=== PATIENT | male | born 1995 | race Caucasian/White ===

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

== ENCOUNTER 2017-09-25 12:22 | Observation (INO) | payer OTHER ==
[2017-09-25] VITALS (7 sets, daily range): BP systolic 109–152; BP diastolic 52–76; PULSE 43–95; TEMP 36.8–37.1; O2SAT 93–99; Ht 182.9 cm; Wt 70.0 kg
[~2017-09-25] VITALS: Ht 182.9 cm; Wt 70.0 kg
[2017-09-25] MEDS ORDERED: MoRPHine SULFATE 10 MG/ML CARP/VIAL IV STA (12:52)
[2017-09-25] MEDS ORDERED: ONDANSETRON INJ 2 MG/ML 2 ML VIAL IV STA (12:52)
[2017-09-25] MEDS ORDERED: MoRPHine SULFATE 4 MG/ML 1 ML CARP\\VIAL ONE (13:19)
--- NOTE | 2017-09-25 13:21 | DIAGNOSTIC IMAGING REPORT ---
L KNEE 3 VIEWS CLINICAL HISTORY: D01B - left knee puncture trauma by nailgun trauma. Pain. COMPARISON: None. DISCUSSION: Metallic nail entering the suprapatellar bursa, passing posterior to the patella, with the tip in the infrapatellar fat pad. No well-defined bony involvement. No evidence for fracture or dislocation. There is no evidence for soft tissue swelling. IMPRESSION: Large metallic nail located within the patellofemoral joint space. No evidence for acute bony involvement. The above report was generated using voice recognition software. It may contain grammatical, syntax or spelling errors. Electronically signed by: Dennis Solano M.D. 09/25/2017 1:20 PM Dictated Date/Time: 09/25/2017 1:19 PM
--- NOTE | 2017-09-25 13:47 | EMERGENCY ROOM VISIT NOTE ---
ED Visit Note First contact with patient: 12:36 CHIEF COMPLAINT: Nail through the left knee HISTORY OF PRESENT ILLNESS: This 22-year-old male patient presents to the emergency department approximately 30 minutes after sustaining an injury to the left knee. The patient states he was climbing up trusses, holding a nail gun, when he accidentally shot a nail gun through his left knee. The nail entered from the superior lateral aspect of the knee. The patient is able to see the head of the nail externally. The patient has been unable to ambulate or move the leg, and has taken no medication for his symptoms. His parents carried him to the vehicle to bring him to the emergency department. The patient denies any other injuries besides their knee. The patient denies swelling or bruising. There is pain the knee joint. They rate the pain as sharp and 10/ 10. No numbness or tingling. No previous injuries to this knee. No ankle, foot or hip pain. The patient's tetanus vaccination is not up-to-date. REVIEW OF SYSTEMS: A 6 system review of systems was completed with positives and pertinent negatives listed in the HPI. ALLERGIES: None MEDICATIONS: None PMH: None SOCIAL HISTORY: The patient lives locally with family. He denies drug, alcohol , tobacco use. PHYSICAL EXAM: Vital Signs: Reviewed Nurse's notes, vital signs stable. GENERAL : Is a 22-year-old white male, no acute distress, but appears in pain, well- developed, well-nourished. MENTAL STATUS: Alert, oriented to person place and time, and cooperative. MUSCULOSKELETAL: There is a nail head sticking out from the superior lateral aspect of the left knee joint. The left knee is mildly swollen. There is no ecchymosis. There is no joint effusion present. The patient is tender throughout the entire knee and joint. There is joint line tenderness. Range of motion is limited. Pt. would not tolerate strength testing of the hamstrings or quads. The foot and toes are warm and well-perfused. Dorsalis pedis pulse 2+. Sensation to pain and light touch is intact. Capillary refill less than 2 seconds. RADIOLOGY: L KNEE 3 VIEWS CLINICAL HISTORY: D01B - left knee puncture trauma by nailgun trauma. Pain. COMPARISON: None. DISCUSSION: Metallic nail entering the suprapatellar bursa, passing posterior to the patella, with the tip in the infrapatellar fat pad. No well-defined bony involvement. No evidence for fracture or dislocation. There is no evidence for soft tissue swelling. IMPRESSION: Large metallic nail located within the patellofemoral joint space. No evidence for acute bony involvement. The above report was generated using voice recognition software. It may contain grammatical, syntax or spelling errors. Electronically signed by: Dennis Solano M.D. 09/25/2017 1:20 PM Dictated Date/Time: 09/25/2017 1:19 PM EMERGENCY DEPARTMENT COURSE: I examined the patient. X-rays of the left knee were reviewed by myself and read by radiology and reveal a nail through the patellofemoral joint space with no obvious bony involvement. I did speak with Dr. Rodriges regarding the patient condition and x-ray and he agrees with orthopedic consult. IV Access obtained. The patient was given 8mg Morphine and 4mg Zofran. I consulted with Dr. Landry who requests starting Ancef and he will send someone to evaluate the patient. The patient was then evaluated by Per Washington PA-C, who did attempt removal of the nail, but unsuccessfully. The patient was given a repeat dose of 4mg Morphine, 1g Ancef, and a Tdap vaccination. He was prepped and taken to the OR by orthopedics. I attest that I have personally reviewed the patient's current medication list. Patient was found to have normal blood pressure on screening and does not require follow-up. DIFFERENTIAL DIAGNOSIS: Foreign body of the knee, infection, fracture, contusion , soft tissue injury, and others DIAGNOSIS: Foreign body through left knee joint Current/Historical Medications No Active Prescriptions or Reported Meds Allergies Coded Allergies: No Known Allergies (Verified , 06/09/05) Uncoded Allergies: ANTIBIOT (Allergy, Unknown, 10/12/09) Vital Signs Date Time Temp Pulse Resp B/P (MAP) Pulse Ox O2 Delivery O2 Flow Rate FiO2 09/25/17 14:54 74 16 165/81 99 09/25/17 13:50 67 18 157/68 96 Room Air 09/25/17 12:26 36.8 81 18 146/77 100 Room Air Medications Administered Medications (Trade) Dose Ordered Sig/Barrett Route Start Time Stop Time Status Last Admin Dose Admin Ondansetron HCl (Zofran Inj) 4 mg NOW STAT IV 09/25/17 12:52 09/25/17 12:53 DC 09/25/17 13:21 4 MG Morphine Sulfate (MoRPHine SULFATE INJ) 8 mg STK-MED ONCE .ROUTE 09/25/17 13:19 09/25/17 13:20 DC 09/25/17 13:24 8 MG Cefazolin Sodium (Cefazolin 1000mg Iv Push) 1,000 mg NOW STAT IV 09/25/17 13:49 09/25/17 13:50 DC 09/25/17 13:59 1,000 MG Diphtheria/ Pertussis/Tetanus Vacc (Adacel Inj) 0.5 ml ONCE ONCE IM. 09/25/17 14:00 09/25/17 14:01 DC 09/25/17 13:59 0.5 ML Morphine Sulfate (MoRPHine SULFATE INJ) 4 mg Q15M PRN IV 09/25/17 14:15 10/09/17 14:14 09/25/17 14:13 4 MG Departure Information Impression Primary Impression: Puncture wound with foreign body, left knee, initial encounter Dispostion Being Evaluated By Surgeon Condition GOOD Prescriptions No Active Prescriptions or Reported Meds Referrals No Doctor, Assigned (PCP) Patient Instructions [facility]
[2017-09-25] MEDS ORDERED: CEFAZOLIN SOD 1000MG/5 ML IV PUSH IV STA (13:49)
[2017-09-25] MEDS ORDERED: DIPHTHERIA/TETANUS/PERTUSSIS 0.5 ML SYR/VIAL IM. ONE (14:00)
[2017-09-25] MEDS ORDERED: MoRPHine SULFATE 4 MG/ML 1 ML CARP\\VIAL IV PRN (14:15)
--- NOTE | 2017-09-25 14:34 | History and Physical ---
History & Physical Date Sep 25, 2017. Chief Complaint Foreign body left knee History of Present Illness The patient is a 22 year old white male with complaints of a nail protruding from his knee. 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 He had his finger on the trigger of the air nailer. It touched his leg and went off. He has a large framing nail protruding from his left knee. He has been unable to flex the knee secondary to pain. No other complaints. He last ate clam chowder at 10 AM this morning. He states he did have 2 large glasses of water around 11:30. No prior history of any issues. Female relatives accompany him today. He denies any numbness or tingling. Past Medical/Surgical History Previous surgeries: myringotomy as a child, wisdom tooth extraction Medical history: Unremarkable Additional History Other: Family history: Significant for diabetes. He also has an infant sister that from some sort of cardiac anomaly. Allergies Coded Allergies: No Known Allergies (Verified , 06/09/05) Uncoded Allergies: ANTIBIOT (Allergy, Unknown, 10/12/09) Home Medications No Active Prescriptions or Reported Meds Physical Examination Addiitonal Comments: Gen.: Well-developed, well-nourished, young white male, in obvious discomfort. No acute distress. Laying on a bed. Alert and oriented. Skin:Warm and dry with good turgor. No rashes or lesions. No ecchymosis or erythema. The patient is not diaphoretic. No abrasions. Nail head is protruding from his left superior patellar pouch. HEENT: Normocephalic atraumatic. Eyes PERRLA, EOMI. No conjunctiva or scleral injection. Nares patent bilaterally without turbinate enlargement. No significant drainage. No epistaxis. Oropharynx without erythema or exudate. Uvula midline, oral mucosa moist. No lesions present. Heart: Heart RRR. 2/6 systolic ejection murmur noted No GR.. Peripheral pulses are 2+. Lungs: Lungs are clear to auscultation. No crackles rhonchi or wheezing. Good air movement. The patient is able to take a deep breath. Abdomen: Abdomen was inspected, auscultated, and palpated. Bowel sounds present x 4. Soft, nontender to palpation. No hepato-splenomegaly. No masses noted. Musculoskeletal: Patient has intact motor function to his left ankle. He has no motion at the knee secondary to pain. Intact quadriceps function. Nail protruding from the knee as stated above. Neurologic: Gross sensation is intact across the left leg by soft touch. Peripheral pulses are 2+. Data: Bradycardia graphic imaging obtained today shows a retained large framing nail within his left knee. It does not appear to be embedded in the bone. Diagnosis Left knee retained foreign body(carpentry nail) Plan of Treatment Patient has been educated regarding today's findings. Necessity for irrigation and debridement was discussed. This will be performed by Dr. Landry this afternoon. I did speak with anesthesia regarding his recent food ingestion. IV has been established. Patient has are received multiple doses of morphine and Zofran. Tetanus has been updated. He'll receive a dose of Ancef prior to incision.
[2017-09-25] MEDS ORDERED: MIDAZOLAM HCL 1 MG/ML 2ML VIAL ONE (14:59)
[2017-09-25] MEDS ORDERED: FENTANYL CITRATE INJ 50 MCG/1 ML 2 ML VIAL ONE (14:59)
[2017-09-25] MEDS ORDERED: ATROPINE SULFATE 0.1 MG/ML 5ML SYR IV PRN (15:00)
[2017-09-25] MEDS ORDERED: KETOROLAC TROMETHAMINE 30 MG/ML VIAL IV. PRN (15:00)
[2017-09-25] MEDS ORDERED: ONDANSETRON INJ 2 MG/ML 2 ML VIAL IV PRN ×2 (15:00→17:30)
[2017-09-25] MEDS ORDERED: BACITRACIN 50000 UNIT VIAL ONE (15:26)
[2017-09-25] MEDS ORDERED: LIDOCAINE/EPINEPHRINE 1% 20 ML VIAL ONE (15:27)
[2017-09-25] MEDS ORDERED: ONDANSETRON INJ 2 MG/ML 2 ML VIAL ONE (15:58)
[2017-09-25] MEDS ORDERED: ROCURONIUM BROMIDE 10 MG/ML 5 ML VIAL IV ONE (15:58)
[2017-09-25] MEDS ORDERED: PROPOFOL IV EMULSION 10 MG/ML 20 ML VIAL IV ONE (15:58)
[2017-09-25] MEDS ORDERED: CEFAZOLIN SOD 1 GM VIAL ONE (15:58)
[2017-09-25] MEDS ORDERED: LIDOCAINE HCL 2% 2 ML VIAL (20MG/ML) ONE (15:58)
[2017-09-25] MEDS ORDERED: DEXAMETHASONE SOD INJ 4 MG/ML VIAL ONE (15:58)
--- NOTE | 2017-09-25 16:24 | DIAGNOSTIC IMAGING REPORT ---
L KNEE 1 OR 2 VIEWS ROUTINE HISTORY: 22 years-old Male PRE OP - LEFT KNEE preoperative exam of the left knee. COMPARISON: Left knee radiographs 09/25/2017 TECHNIQUE: 2 views of the left knee FINDINGS: Interval removal of the radiopaque foreign body within the patellofemoral joint. There is persistent moderate soft tissue swelling about the knee with moderate joint effusion. Corticated bone fragment superior to the tibial tuberosity is again seen measuring up to 1.4 cm in length suggesting remote Sandy-Schlatter disease or remote avulsion fracture. No acute fracture or subluxation identified. No definite intra-articular loose body. IMPRESSION: 1. No acute fracture or subluxation. 2. Status post removal of the foreign body within the patellofemoral joint. There is persistent soft tissue swelling about the knee with moderate joint effusion. The above report was generated using voice recognition software. It may contain grammatical, syntax or spelling errors. Electronically signed by: Lucian Gandhi M.D. 09/25/2017 4:22 PM Dictated Date/Time: 09/25/2017 4:20 PM
--- NOTE | 2017-09-25 17:20 | [facility] Post Operative Brief Note ---
Immediate Operative Summary Operative Date Sep 25, 2017. Pre-Operative Diagnosis foreign body left knee Post-Operative Diagnosis same plus chondral fracture Procedure(s) Performed arthroscpy, irrigation, debridement removal of foreign body and chondral fraacture Surgeon adrienne Industrial Pipefitter Journeyman Surgeon(s) betzaida Estimated Blood Loss 5cc Findings Consistent with Post-Op Diagnosis Specimens foreign body Drains hemovac x1 Anesthesia Type General Complication(s) none Disposition Accompanied Pt To Recover: no Disposition: Recovery Room / PACU
[2017-09-25] MEDS ORDERED: ALUMINUM/MAGNESIUM/SIMETH (MAALOX MAX) 30 ML UDC PO PRN (17:30)
[2017-09-25] MEDS ORDERED: ACETAMINOPHEN 325 MG TAB PO PRN (17:30)
[2017-09-25] MEDS ORDERED: DiphenhydrAMINE HCL 50 MG/ML VIAL IV PRN (17:30)
[2017-09-25] MEDS ORDERED: BISACODYL 10 MG SUPP PR PRN (17:30)
[2017-09-25] MEDS ORDERED: MAGNESIUM HYDROXIDE SUSP 30 ML UDC PO PRN (17:30)
[2017-09-25] MEDS ORDERED: METOCLOPRAMIDE HCL INJ 5 MG/ML 2 ML VIAL IV PRN (17:30)
--- NOTE | 2017-09-25 17:50 | [facility] Operative Report ---
Operative Report Operative Date Sep 25, 2017. Pre-Operative Diagnosis foreign body left knee Post-Operative Diagnosis same plus chondral fracture Procedure(s) Performed arthroscpy, irrigation, debridement removal of foreign body and chondral fraacture Surgeon adrienne Passenger Service Manager Surgeon(s) betzaida Estimated Blood Loss 5cc Findings foreign body left knee; chondral defect Specimens foreign body Drains hemovac x1 Anesthesia General Complication(s) None Disposition Recovery Room / PACU (stable) Indications Patient is a 22-year-old male who shot a nail into his left knee with a nail gun today while working. X-rays were taken and he was found to have an intra- articular foreign body. Surgical intervention was recommended. Procedure, occasions surgery were discussed and he agreed to proceed. Informed consent was obtained. He was taken to the operating room urgently. Description of Procedure Patient was taken to the operating room and placed under general anesthesia. He was given 1 g of IV Ancef for surgical prophylaxis. Timeout was performed. He was prepped and draped in routine sterile fashion. As present during the entire case, please see Dr. Landry's operative report for further detail. Patient was awakened and transferred to recovery room in stable condition. I attest to the content of the Intraoperative Record and any orders documented therein. Any exceptions are noted below.
[2017-09-25] MEDS: HYDROmorphone INJ 2 MG/ML SYR/VIAL IV PRN ×8 (17:55→18:30)
--- NOTE | 2017-09-25 18:16 | Anesthesiology Progress Note ---
Anesthesia Post Op Note Date & Time Sep 25, 2017 at 18:16 Vital Signs Vital Signs Past 12 Hours Date Time Temp Pulse Resp B/P (MAP) Pulse Ox O2 Delivery O2 Flow Rate FiO2 09/25/17 14:54 74 16 165/81 99 09/25/17 13:50 67 18 157/68 96 Room Air 09/25/17 12:26 36.8 81 18 146/77 100 Room Air Notes Mental Status: alert / awake / arousable, participated in evaluation Pt Amnestic to Procedure: Yes Nausea / Vomiting: adequately controlled Pain: adequately controlled Airway Patency, RR, SpO2: stable & adequate BP & HR: stable & adequate Hydration State: stable & adequate Anesthetic Complications: no major complications apparent
[2017-09-25] MEDS: MoRPHine SULFATE 2 MG/ML CARP IV PRN (19:37)
[2017-09-25] MEDS ORDERED: IV FLUIDS COMPLETED PRN (19:45)
--- NOTE | 2017-09-25 20:25 | ORTHOPEDIC CONSULTATION ---
DATE OF CONSULTATION: 09/25/2017 The patient is seen in conjunction with Per Washington. For further details, refer to his dictation. He and I saw and evaluated this patient, I am in agreement with the plan. SUBJECTIVE: Francisco J is a 22-year-old male who sustained an accidental nail gun injury at work earlier today. He was coming down the ladder when the nail gun contacted his left knee went off and injected a nail into the knee. He was brought to the Emergency Room where he was evaluated. He received tetanus and antibiotics. There is no prior history of knee injury. He denies numbness and tingling. DATA: AP and lateral radiographs show no evidence of fracture. Additionally, a nail was noted in the patellofemoral joint. PHYSICAL EXAMINATION: Shows that the knee cannot be moved due to pain and the impeding foreign body. There is minimal swelling about the knee, the nail is protruding superior and lateral. The size of the knee joint is nontender and the patella is minimally tender. He cannot do a leg lift. He has 1+ dorsalis pedis and posterior tib pulses. There is normal sensation in the foot and leg with 5/5 ankle and toe plantar flexion and dorsiflexion strength. IMPRESSION: Left knee foreign body. PLAN: I have recommended operative intervention to remove the nail, explore the knee arthroscopically, irrigate and debride and other procedures as indicated. An informed consent is obtained. He is educated about the planned treatment. He has received antibiotics and he will be admitted to the hospital postoperatively. We talked about the risks of infection, bleeding, pain, scarring, further damage to the knee; small risk of blood clot, embolism, heart attack, stroke, . He has no issues with bleeding, blood clots or infections. He does not have metal sensitivity. He is otherwise a fairly healthy person. He will likely be admitted postoperatively for pain control, antibiotics and other treatment as necessary.
--- NOTE | 2017-09-25 20:40 | OPERATIVE REPORT ---
DATE OF OPERATION: 09/25/2017 ADDENDUM After removal of the foreign body, x-rays AP and lateral were obtained of the knee, which showed no residual foreign material, no evidence of fracture. I attest to the content of the Intraoperative Record and any orders documented therein. Any exception s are noted below.
[2017-09-25] MEDS: D5W AND 1/2NSS + 20MEQ KCL 1,000 ML IV SCH (20:46)
[2017-09-25] MEDS: ACETAMINOPHEN IV 1,000 MG in EMPTY BAG 0 ML IV SCH (20:47)
[2017-09-25] MEDS: DOCUSATE SODIUM 100 MG CAP PO SCH (20:50)
[2017-09-25] MEDS: KETOROLAC TROMETHAMINE 30 MG/ML VIAL IV. SCH (20:50)
--- NOTE | 2017-09-25 20:50 | OPERATIVE REPORT ---
DATE OF OPERATION: 09/25/2017 PREOPERATIVE DIAGNOSIS: Foreign body of the left knee. POSTOPERATIVE DIAGNOSIS: Left knee foreign body with chondral fracture of the medial femoral condyle. PROCEDURE: Left knee arthroscopy, arthroscopic irrigation and debridement, removal of foreign body, removal of chondral fracture with microfracture. SURGEON: Orion Landry MD. PRESS CLEANER: Kalyn Archer PA-C. No resident or fellow available. ANESTHESIA: Laryngeal mask. INDICATIONS OF PROCEDURE: The patient is a 22-year-old male who sustained an accidental self-inflicted nail gun injury to his left knee earlier today. The nail has entered just above the superior lateral patella and is incarcerated within the knee. Radiographs do not show fracture; however, the nail was obviously within the knee joint. He is educated about his options. The nail was attempted to be removed in the Emergency Room, but could not be done. He is taken to surgery for removal of the foreign body, arthroscopic irrigation and debridement and any other procedures as would be necessary. PROCEDURE IN DETAIL: Informed consent was obtained. The patient was identified as Francisco J Leyva. He identified the operative site as the left knee. I marked it with my initials. A preop surgical time was performed. A preop dose of IV antibiotics was given. He was taken to the operating room, positioned supine on the operating room table. A laryngeal mask anesthetic was administered. A tourniquet was applied to the left thigh. DVT prophylaxis was not indicated. After performing the surgical time out, the head of which was outside the skin on the superior lateral aspect of the knee along with a patch of clothing was removed without incident using a pair of pliers. The examination then revealed a clicking when the knee was flexed involving the patellofemoral joint. He had full extension and flexion to 140 degrees and intact cruciate and collateral stability. There was perhaps a small effusion within the knee. The leg was clipped, pre-prepped with a scrub and then prepped and draped in the usual sterile fashion. He received a preoperative dose of IV antibiotics. A lateral post was used for stressing the knee. An inferolateral viewing portal was made followed by superolateral outflow portal and an inferomedial working portal. The retropatellar fat pad was debrided. Cruciate ligaments normal. The posteromedial compartment normal. I did not enter the posterolateral compartment. The lateral compartment showed normal articular surfaces, normal meniscus and popliteal hiatus. I could see into the back of the lateral compartment from anteriorly. The medial and lateral gutters were unremarkable. The medial compartment showed normal articular surfaces and normal meniscus. The patella was normal with the exception of an area proximal and slightly lateral where the nail had just penetrated the very margin of the patella. There was a minor chondral injury here and this was debrided. I debrided soft tissue in the suprapatellar pouch. I identified the tract where the nail penetrated. I inserted a hemostat. This went directly down to the aforementioned location at the superior lateral border of the patella. Fluid was then expressed from this area for irrigation. Likely because of this soft tissue injury fluid was extravasating out into the prepatellar bursa. I debrided the patella through the superior lateral portal. It was noted that the nail struck the superior trochlea, made a tract obliquely down across the superior medial trochlea and then in the medial condyle knocked off a piece of cartilage which was attached only proximally and then continued to skive distally. The overall length of this was perhaps 5 cm. The chondral tracts proximally and distally were partial thickness and were debrided to remove chondral fraying but were not full thickness and did not result in any unstable fragments. There was a small fragment which was measured to be about 5 or 6 mm wide and about 10-12 mm long. There was some metal debris bone and on the fragment. I sized this with a probe and freer. The smaller screw that we had was probably 2.4 mm which would have taken out most of the fragment. The fragment was somewhat irregular and longitudinal and I think given the size and location as well as the nature of this injury that a repair, although desirable was not technically feasible. The fragment was amputated proximally with a freer and then removed. Parking Meter Servicer images were obtained. I then curetted the base of the lesion to remove any debris and the calcified cartilage layer. Vertical dumont were essentially already present. I debrided with a shaver. The size of the lesion ended up being 12 mm x 7 mm, 12 mm anterior to posterior 7 mm medial to lateral. Microfracture picks were not available. I used a 0.045 inch K wire to drill 6 holes into the lesion for microfracture procedure. A drain was placed through the superior lateral portal and brought into the knee, medial gutter and anterior knee joint. The shaver was run through the knee to excelsior picker loose debris. The drain was tied in with 4-0 nylon and the portals were closed with 4-0 nylon. A soft sterile dressing was applied with several ABDs, Xeroform, 4 x 4's, and a full length Vinicio wrap. A hinged brace was applied with the knee locked in extension. The patient was awakened from anesthesia without difficulty and taken to the recovery room in stable condition. The removed nail which was completely removed and appeared to be approximately 8 or 10 evelio type nail which was approximately 3 inches in length with a piece of clothing attached to it was removed. Counts were correct at the end of case. Blood loss was minimal. At the conclusion of the operation, I spoke to patient's family and informed them of my findings and gave detailed postoperative instructions. We will likely leave the drain in for approximately 24-36 hours. The knee will be held immobilized in extension until that point. Subsequent to that, we will go ahead and begin early range of motion. He can weightbear as tolerated with the knee in extension locked in the brace. We talked about restrictions for the microfracture postoperatively. He will receive a postop course of intravenous antibiotics. I attest to the content of the Intraoperative Record and any orders documented therein. Any exception s are noted below.
[2017-09-25] MEDS: MoRPHine SULFATE 4 MG/ML 1 ML CARP\\VIAL IV PRN (21:33)
[2017-09-25] MEDS: OXYCODONE HCL IR 5 MG TAB (IMMEDIATE RELEASE) PO PRN (22:42)
[2017-09-26] VITALS (9 sets, daily range): BP systolic 102–137; BP diastolic 49–74; PULSE 40–69; TEMP 36.8–37.1; O2SAT 93–99
[2017-09-26] MEDS: CEFAZOLIN IV 1,000 MG in SYRINGE 0 ML IV SCH ×3 (00:27→15:45)
[2017-09-26] MEDS: KETOROLAC TROMETHAMINE 30 MG/ML VIAL IV. SCH ×3 (00:28→11:35)
[2017-09-26] MEDS: OXYCODONE HCL IR 5 MG TAB (IMMEDIATE RELEASE) PO PRN ×4 (02:57→19:37)
[2017-09-26] MEDS: ACETAMINOPHEN IV 1,000 MG in EMPTY BAG 0 ML IV SCH ×2 (04:39→11:34)
[2017-09-26] MEDS: D5W AND 1/2NSS + 20MEQ KCL 1,000 ML IV SCH (05:33)
[2017-09-26] MEDS: MoRPHine SULFATE 2 MG/ML CARP IV PRN (07:56)
[2017-09-26] MEDS: MULTIVITAMIN TAB PO SCH (07:57)
[2017-09-26] MEDS: DOCUSATE SODIUM 100 MG CAP PO SCH ×2 (07:57→20:47)
[2017-09-26] MEDS: PANTOprazole SOD 40 MG TAB PO SCH (07:57)
[2017-09-26] MEDS ORDERED: OXYC-57 PO (09:38)
--- NOTE | 2017-09-26 09:48 | Orthopedic Progress Note ---
Orthopedic Progress Note Date of Service Sep 26, 2017. Subjective Post OP Day: 1 Reports: complaints (having pain this morning), Denies: chest pain, SOB, nausea / vomiting, light headedness, calf pain Additional Notes: has had ofirmev, toradol, oxycodone, and morphine this morning Objective splint C/D/I, capillary refill less than 2 sec., dressing C/D/I, A&O x3, toes mobile, CMS intact brace and dressings intact, drain working with 75ml out so far. vitals do not suggest significant pain Date Time Temp Pulse Resp B/P (MAP) Pulse Ox O2 Delivery O2 Flow Rate FiO2 09/26/17 07:06 36.8 45 15 117/59 (78) 99 Room Air 09/26/17 05:37 42 102/49 (66) 98 Room Air 09/26/17 03:30 36.8 42 15 116/64 (81) 99 Room Air 09/26/17 02:23 40 98 Room Air 09/26/17 00:25 Room Air 09/25/17 23:19 37.0 43 15 109/52 (71) 97 Room Air 09/25/17 22:10 37.0 60 18 137/72 (93) 95 Room Air 09/25/17 21:18 37.1 60 18 152/70 (97) 95 Room Air 09/25/17 20:10 36.8 66 18 143/76 (98) 97 Room Air 09/25/17 19:40 36.8 68 18 133/73 (93) 99 Nasal Cannula 2.0 09/25/17 19:10 Nasal Cannula 2.0 09/25/17 19:10 93 Nasal Cannula 2.0 09/25/17 19:09 37.1 95 18 148/74 (98) 93 Nasal Cannula 2.0 09/25/17 18:52 56 16 09/25/17 18:52 58 16 99 09/25/17 18:51 120/56 09/25/17 18:47 53 17 09/25/17 18:47 55 17 99 09/25/17 18:46 120/53 09/25/17 18:42 55 15 09/25/17 18:42 56 15 100 09/25/17 18:41 141/59 09/25/17 18:37 37.0 61 17 121/51 (78) 99 Nasal Cannula 2 09/25/17 18:37 54 16 09/25/17 18:37 55 16 100 09/25/17 18:36 121/51 09/25/17 18:32 56 17 100 09/25/17 18:32 59 17 09/25/17 18:30 123/63 09/25/17 18:27 51 15 100 18 18:27 51 15 09/25/17 18:26 123/67 09/25/17 18:24 73 17 100 09/25/17 18:24 69 17 09/25/17 18:20 145/76 09/25/17 18:19 83 23 100 09/25/17 18:19 86 23 09/25/17 18:15 137/77 09/25/17 18:14 65 15 09/25/17 18:14 65 15 100 09/25/17 18:11 128/78 09/25/17 18:09 57 17 09/25/17 18:09 58 17 100 09/25/17 18:05 147/81 09/25/17 18:04 83 18 09/25/17 18:04 82 18 100 09/25/17 18:01 138/65 09/25/17 17:59 80 20 09/25/17 17:59 78 20 100 09/25/17 17:55 134/77 09/25/17 17:54 78 19 09/25/17 17:54 78 19 100 09/25/17 17:50 132/68 09/25/17 17:49 92 24 100 09/25/17 17:49 94 24 09/25/17 17:46 131/65 09/25/17 17:44 104 23 98 09/25/17 17:44 104 23 09/25/17 17:44 36.9 94 16 146/66 100 Oxymask 10 09/25/17 14:54 74 16 165/81 99 09/25/17 13:50 67 18 157/68 96 Room Air 09/25/17 12:26 36.8 81 18 146/77 100 Room Air Assessment & Plan Assessment: left knee post op day 1 arthroscopy, irrigation and debridement, foreign body removal Plan: PT today for crutch training continue antibiotics ice and elevate knee will leave drain in today Pt to be seen later today by Dr. Landry anticipate D/C to home tomorrow Discharge Planning Discharge Planning: home Pain Management: Percocet DVT Prophylaxis: TEDs Therapy: Physical Therapy
[2017-09-26] MEDS: MoRPHine SULFATE 4 MG/ML 1 ML CARP\\VIAL IV PRN ×2 (15:48→22:40)
[2017-09-27] MEDS: MoRPHine SULFATE 4 MG/ML 1 ML CARP\\VIAL IV PRN (04:05)
[2017-09-27 06:59] VITALS: BP 126/65; PULSE 53; TEMP 36.9; O2SAT 96
[2017-09-27] MEDS: MULTIVITAMIN TAB PO SCH (07:36)
[2017-09-27] MEDS: OXYCODONE HCL IR 5 MG TAB (IMMEDIATE RELEASE) PO PRN ×2 (07:36→11:24)
[2017-09-27] MEDS: DOCUSATE SODIUM 100 MG CAP PO SCH (07:36)
[2017-09-27] MEDS: PANTOprazole SOD 40 MG TAB PO SCH (07:37)
--- NOTE | 2017-09-27 10:51 | Discharge Instructions ---
Discharge Instructions Date of Service Sep 27, 2017. Admission Reason for Admission: Puncture Wound With Foreign Body, Left Knee Discharge Discharge Diagnosis / Problem: same Discharge Goals Goal(s): Decrease discomfort, Improve function Activity Recommendations Activity Limitations: per Instructions/Follow-up section . Instructions / Follow-Up Instructions / Follow-Up follow up wiTh DR CHOUDHURY THIS WEEK WE WILL CALL YOU TO SET UP PHYSICAL THERAPY PERCOCET 5/325 1-2 BY MOUTH EVERY 6 HOURS COLACE OR SENNEKOT FOR CONSTIPATION ADVIL OR ALEVE CALL FOR ANY PROBLEMS FEVER, SWELLING NUMBNESS PAIN KEFLEX 500 MG PO QID X3DAYS Current Hospital Diet Patient's current hospital diet: Regular Diet Discharge Diet Recommended Diet: Regular Diet Procedures Procedures Performed: arthroscpy, irrigation, debridement removal of foreign body and chondral fraacture Pending Studies Studies pending at discharge: no Work Instructions Additional Instructions: NO WORK Medical Emergencies . Who to Call and When: Medical Emergencies: If at any time you feel your situation is an emergency, please call 911 immediately. . Non-Emergent Contact Non-Emergency issues call your: Surgeon Contact Number: [phone] Call Non-Emergent contact if: you have a fever, your pain is not controlled, your pain is worsening, wound has increased drainage, wound has increased redness, wound has increased pain . "Provider Documentation" section prepared by Orion Choudhury. . VTE Core Measure Inpt VTE Proph given/why not?: Treatment not indicated
[2017-09-27] MEDS ORDERED: OXYC-57 PO (10:52)
[2017-09-27] MEDS ORDERED: CEPH500T PO (10:54)
[2017-09-27 11:07] VITALS: BP 126/65; PULSE 53; TEMP 36.9; O2SAT 96
--- NOTE | 2017-09-27 13:05 | PROGRESS NOTE ---
DATE: 09/27/2017 SUBJECTIVE: The patient is resting comfortably in bed. No problems are reported. Pain is well controlled. He has not had any fevers and his vital signs are stable. He has a 2+ dorsalis pedis and posterior tib pulses. He has 5/5 strength on ankle and toe plantar flexion and dorsiflexion with normal sensation in the leg. His drainage, the last shift, was 50 mL. The dressing is changed. There is minimal swelling within the knee or prepatellar bursa. No erythema. The drain is removed. The new dressing is applied after cleaning the leg. He does a poor report quad sit and cannot do a straight leg raise. He is unable to bend his knee significantly because of pain. IMPRESSION: Marginal fracture of the patella and chondral injury of the medial femoral condyle status post nail gun foreign body injury to the left knee. PLAN: Findings are discussed. He is discharged home. We will contact him tomorrow with appointment for physical therapy. He will see me later in the week for a wound check. If there are any problems with pain, fever, swelling, numbness and tingling, any other problems or questions, please call the office. He is supplied with phone number. He is to take a stool softener like Senokot or Colace. Cephalexin 500 mg q.i.d. x3 days. Percocet 1-2 every 6 hours as needed for pain. He is instructed on ankle pumps, quad sits, straight leg raises and knee range of motion. He is not to be bearing weight his knee bent. I discussed with him the nature of the injury and my recommendations for healing of the microfracture medial femoral condyle which would involve a prolonged period of time without weightbearing flexion of the knee. He is able to bear weight in full extension using crutches and brace. Leave the dressing as is. ARTIE
--- NOTE | 2017-09-28 16:38 | Discharge Summary ---
Discharge Summary Date of Service Sep 28, 2017. Discharge Summary Admission Date: Sep 25, 2017 at 17:42 Discharge Date: Sep 27, 2017 Discharge Disposition: Home Principal Diagnosis: Foreign body left knee Secondary Diagnoses/Problems: osteochondral defect left knee Procedures: Status post removal foreign body left knee, arthroscopic irrigation and debridement and microfracture left knee Pending Studies/Follow-Up: Follow-up with Dr. Choudhury 3-5 days after surgery. Please call [phone] to schedule. Medication Reconciliation New Medications: Cephalexin (Cephalexin) 500 Mg Tab 1 TAB PO QID for 3 Days, #12 TAB Oxycodone/Acetaminophen 5MG/325MG (Percocet 5MG/325MG) Tab 1-2 TABLETS PO Q6 PRN for Pain, #30 TAB PAIN Hospital Course Patient is a 22-year-old male status post setting off nail gun into left knee while walking down a ladder carrying a nail gun. He presented the emergency room where x-rays were taken and he was found to have a foreign body left knee. It was intra-articular. Orthopedic surgery consult was obtained by Dr. Choudhury. Surgical intervention was recommended for removal of foreign body and arthroscopic irrigation and debridement of his left knee. He was given IV antibiotics prior to surgery and was taken to the operating room urgently. Risks and complications of surgery were discussed with the patient and he agreed to proceed. Informed consent was obtained by Dr. Choudhury. On September 25, 2017 he underwent Removal of foreign body left knee and an arthroscopic irrigation debridement and microfracture of his left knee. Surgery was done with general anesthesia. He tolerated the procedure well without any intraoperative complications. Postoperatively he was placed in a hinged postoperative range of motion brace and was allowed to weight-bear as tolerated with the knee locked in extension. He was instructed to use crutches to assist with ambulation. IV Ancef was continued after surgery. This prescribed oral and IV pain medication. His pain was controlled in the hospital on IV medication for 24 hours postoperatively. He then transitioned to PO meds comfortably. He did well out of bed with the assistance of crutches. He was followed during his hospital stay on a daily basis. Dressings remained clean, dry, and intact. Operative date to his Hemovac was removed from his left knee and new dressings were applied. He tolerated the dressing change without difficulty. He was deemed safe for home and was discharged to his home in stable condition on September 27, 2017. Discharge instructions were provided. Follow-up instructions were provided. Total time spent on discharge = This includes examination of the patient, discharge planning, medication reconciliation, and communication with other providers. Discharge Instructions Discharge Instructions Date of Service Sep 27, 2017. Admission Reason for Admission: Puncture Wound With Foreign Body, Left Knee Discharge Discharge Diagnosis / Problem: same Discharge Goals Goal(s): Decrease discomfort, Improve function Activity Recommendations Activity Limitations: per Instructions/Follow-up section . Instructions / Follow-Up Instructions / Follow-Up follow up wiTh DR CHOUDHURY THIS WEEK WE WILL CALL YOU TO SET UP PHYSICAL THERAPY PERCOCET 5/325 1-2 BY MOUTH EVERY 6 HOURS COLACE OR SENNEKOT FOR CONSTIPATION ADVIL OR ALEVE CALL FOR ANY PROBLEMS FEVER, SWELLING NUMBNESS PAIN KEFLEX 500 MG PO QID X3DAYS Current Hospital Diet Patient's current hospital diet: Regular Diet Discharge Diet Recommended Diet: Regular Diet Procedures Procedures Performed: arthroscpy, irrigation, debridement removal of foreign body and chondral fraacture Pending Studies Studies pending at discharge: no Work Instructions Additional Instructions: NO WORK Medical Emergencies . Who to Call and When: Medical Emergencies: If at any time you feel your situation is an emergency, please call 911 immediately. . Non-Emergent Contact Non-Emergency issues call your: Surgeon Contact Number: [phone] Call Non-Emergent contact if: you have a fever, your pain is not controlled, your pain is worsening, wound has increased drainage, wound has increased redness, wound has increased pain . "Provider Documentation" section prepared by Orion Choudhury. . VTE Core Measure Inpt VTE Proph given/why not?: Treatment not indicated
== END 2017-09-27 12:45 | disposition home or self-care (01) ==
LOC: C.EDB 12:23 → C.MSW 17:42 → ENRESERV 18:34
PROVIDERS: ADMIT Physical Medicine & Rehabilitation Sports Medicine; ATTEND Physical Medicine & Rehabilitation Sports Medicine
DX: S72.432A Displaced fracture of medial condyle of left femur, initial encounter for closed fracture (principal); S81.042A Puncture wound with foreign body, left knee, initial encounter; M95.8 Other specified acquired deformities of musculoskeletal system; W29.4XXA Contact with nail gun, initial encounter; Z18.10 Retained metal fragments, unspecified; Z83.3 Family history of diabetes mellitus

== ENCOUNTER → 2017-10-11 | Outpatient (CLI) | payer OTHER ==
[~2017-10-11] MED LIST changes: -AMXCH400; +OXYC-57 PO
== END | disposition home or self-care (01) ==
LOC: C.LAB 03:39
DX: Z02.83 Encounter for blood-alcohol and blood-drug test (principal)